=== PATIENT | male | born 1950 | race Caucasian/White ===

== ENCOUNTER 2017-05-01 10:06 | Emergency (ER) | payer MEDICARE, MEDICAID ==
[~2017-05-01] VITALS: Ht 172.7 cm; Wt 72.9 kg
[~2017-05-01 10:06] MED LIST: ALBU18HF2 INH; ASPI81TA61 PO; CARV-50 PO; ESOM40CA PO; FLUT1DIS4 INH; FURO-150 PO; GLIP5TAB26 PO; GLUC-133 PO; GUAI600T45 PO; ISOS10TA8 PO; RIVA10TA PO; ROSU40TA PO; SODI325T PO; SODI650T29 PO; VITA1TAB20 PO; VITA80008 PO
[2017-05-01 10:32] LABS: COLOR,URINE Yellow (Yellow); GLUCOSE, URINE Negative (Neg); KETONES,URINE Trace mg/dl (Neg); LEUKOCYTE ESTERASE ,URINE Negative (Neg); NITRITES, URINE Negative (Neg); OCCULT BLOOD,URINE Large (Neg); PROTEIN,URINE 30 mg/dl (Neg)
[2017-05-01 10:38] LABS: UA COLLECTION TYPE CLN CATCH MIDSTREAM
[2017-05-01 10:58] LABS: RBC,URINE TNTC /HPF (0-2); WBC,URINE 0-4 /HPF (0-4)
[2017-05-01 10:59] LABS: BACTERIA,URINE NONE SEEN /HPF (Neg); SQUAMOUS EPITHELIAL CELL,UR FEW /LPF (FEW)
[2017-05-01 11:00] LABS: COARSE GRANULAR CAST 0-3 /LPF (NEGATIVE); HYALINE CASTS 0-3 /LPF (NEGATIVE); MUCUS STRANDS FEW /LPF (Neg)
[2017-05-01 11:01] LABS: AMORPHOUS URATES 1+
[2017-05-01 11:04] LABS: BASOPHILS % (AUTO) 0.3 % (0-1); EOSINOPHILS # (AUTO) 0.1 X10'3 (0-0.9); EOSINOPHILS % (AUTO) 1.6 % (0-6); HEMATOCRIT 28.1 % (42.0-52.0); HEMOGLOBIN 9.2 g/dl (14.0-17.9); LYMPHOCYTES # (AUTO) 0.5 X10'3 (1.1-4.8); LYMPHOCYTES % (AUTO) 5.9 % (21-51); MEAN CORPUSCULAR HEMOGLOBIN 27.2 PG (27.0-31.0); MEAN CORPUSCULAR HGB CONC 32.9 % (33.0-36.5); MEAN CORPUSCULAR VOLUME 82.6 FL (78-98); MEAN PLATELET VOLUME 9.5 FL (7.4-10.4); MONOCYTES # (AUTO) 0.4 X10'3 (0-0.9); MONOCYTES % (AUTO) 4.8 % (2-12); NEUTROPHILS # (AUTO) 7.8 X10'3 (1.8-7.7); NEUTROPHILS % (AUTO) 87.4 % (42-75); PLATELET COUNT 124 X10'3 (140-440); RED CELL DISTRIBUTION WIDTH 16.9 % (11.5-14.5); WHITE BLOOD COUNT 8.9 X10'3 (4.5-11.0)
[2017-05-01] MEDS ORDERED: normal saline 1000ML IV soln IVB ONE (11:05)
[2017-05-01] MEDS ORDERED: ondansetron/PF 4mg/2ml inj IV ONE (11:05)
[2017-05-01] MEDS ORDERED: morphine 5 MG/ML injection IM ONE (11:05)
[2017-05-01 11:09] LABS: CLARITY,URINE Cloudy (Clear)
[2017-05-01 11:13] LABS: INR 1.3 INR; PROTHROMBIN TIME 13.6 SECONDS (9.0-12.0)
[2017-05-01] MEDS ORDERED: morphine sulfate 8 MG/ML SYRINGE IM ONE (11:15)
[2017-05-01 11:20] LABS: ALANINE AMINOTRANSFERASE 29 U/L (12-78); ALBUMIN 2.7 G/DL (3.4-5.0); ALBUMIN/GLOBULIN RATIO 0.9 (1.1-1.5); ALKALINE PHOSPHATASE 88 IU/L (46-116); AMYLASE 42 U/L (25-115); ANION GAP 12 (8-16); ASPARTATE AMINO TRANSFERASE 14 U/L (10-37); BILIRUBIN,TOTAL 0.5 MG/DL (0.1-1.0); BLOOD UREA NITROGEN 37 MG/DL (7-18); BUN/CREATININE RATIO 14.7 (5.4-32.0); CALCIUM 8.5 MG/DL (8.5-10.1); CHLORIDE 109 MMOL/L (99-107); CREATININE 2.51 MG/DL (0.60-1.10); GLUCOSE 134 MG/DL (70-104); LIPASE 155 U/L (73-393); POTASSIUM 4.7 MMOL/L (3.5-5.1); SODIUM 139 MMOL/L (135-145); TOTAL CARBON DIOXIDE 18.5 MMOL/L (24-32); TOTAL PROTEIN 5.8 G/DL (6.4-8.2); eGFR 26 ML/MIN
[2017-05-01] MEDS ORDERED: ketorolac trometh. 30mg/ml inj. IV ONE (12:05)
[2017-05-01] MEDS ORDERED: tamsulosin 0.4mg capsule PO ONE (12:15)
[2017-05-01] MEDS ORDERED: FLO0.4C PO (12:16)
[2017-05-01] MEDS ORDERED: ONDA8TAB9 PO (12:16)
[2017-05-01] MEDS ORDERED: NAPR-56 PO (12:16)
[2017-05-01] MEDS ORDERED: HYDR-569 PO (12:16)
[2017-05-01 12:38] VITALS: BP 163/71
== END 2017-05-01 13:41 | disposition home or self-care (01) ==
LOC: ER 10:07
DX: N13.2 Hydronephrosis with renal and ureteral calculous obstruction (principal); I25.10 Atherosclerotic heart disease of native coronary artery without angina pectoris; I11.0 Hypertensive heart disease with heart failure; I50.9 Heart failure, unspecified; E78.00 Pure hypercholesterolemia, unspecified; I25.2 Old myocardial infarction; J45.909 Unspecified asthma, uncomplicated; K21.9 Gastro-esophageal reflux disease without esophagitis; E11.9 Type 2 diabetes mellitus without complications; Z88.0 Allergy status to penicillin; Z88.2 Allergy status to sulfonamides; Z88.5 Allergy status to narcotic agent; Z88.8 Allergy status to other drugs, medicaments and biological substances; Z79.82 Long term (current) use of aspirin
CPT/HCPCS: 36415; 74176; 80053; 81001; 82150; 83690; 85025; 85610; 96361; 96372; 96374; 96375; 99285; J1885; J2270; J2405; J7030

== ENCOUNTER 2019-01-07 11:12 | Emergency (ER) | payer MEDICARE, MEDICAID ==
[~2019-01-07] VITALS: Ht 172.7 cm; Wt 85.5 kg
[~2019-01-07 11:12] MED LIST changes: +HYDR-4383 PO; +ONDA8TAB9 PO
[2019-01-07 11:32] VITALS: BP 158/100
== END 2019-01-07 14:05 | disposition home or self-care (01) ==
LOC: ER 11:12
DX: S40.012A Contusion of left shoulder, initial encounter (principal); I25.10 Atherosclerotic heart disease of native coronary artery without angina pectoris; I11.0 Hypertensive heart disease with heart failure; I50.9 Heart failure, unspecified; E78.00 Pure hypercholesterolemia, unspecified; I25.2 Old myocardial infarction; J45.909 Unspecified asthma, uncomplicated; K21.9 Gastro-esophageal reflux disease without esophagitis; M19.90 Unspecified osteoarthritis, unspecified site; M10.9 Gout, unspecified; E11.9 Type 2 diabetes mellitus without complications; Z88.0 Allergy status to penicillin; Z87.11 Personal history of peptic ulcer disease; Z88.2 Allergy status to sulfonamides; Z88.6 Allergy status to analgesic agent; Z79.82 Long term (current) use of aspirin; Z79.899 Other long term (current) drug therapy; Z98.61 Coronary angioplasty status; Z95.4 Presence of other heart-valve replacement; W01.0XXA Fall on same level from slipping, tripping and stumbling without subsequent striking against object, initial encounter; Y93.89 Activity, other specified; Y92.89 Other specified places as the place of occurrence of the external cause; Y99.8 Other external cause status
CPT/HCPCS: 73030; 99283

== ENCOUNTER 2019-08-31 09:45 | Emergency (ER) | payer MEDICARE, MEDICAID ==
[~2019-08-31] VITALS: Ht 172.7 cm; Wt 100.0 kg
[2019-08-31 10:36] LABS: BASOPHILS % (AUTO) 0.6 % (0-1); EOSINOPHILS # (AUTO) 0.2 X10'3 (0-0.9); EOSINOPHILS % (AUTO) 2.3 % (0-6); HEMOGLOBIN 15.5 g/dl (14.0-17.9); LYMPHOCYTES # (AUTO) 1.3 X10'3 (1.1-4.8); LYMPHOCYTES % (AUTO) 17.7 % (21-51); MEAN CORPUSCULAR HEMOGLOBIN 30.7 PG (27.0-31.0); MEAN PLATELET VOLUME 8.2 FL (7.4-10.4); MONOCYTES # (AUTO) 0.7 X10'3 (0-0.9); NEUTROPHILS # (AUTO) 5.3 X10'3 (1.8-7.7); NEUTROPHILS % (AUTO) 70.4 % (42-75); PLATELET COUNT 146 X10'3 (140-440); RED BLOOD COUNT 5.06 X10'6 (4.70-6.10); WHITE BLOOD COUNT 7.5 X10'3 (4.5-11.0)
[2019-08-31] MEDS ORDERED: oxymetazoline 15 ML nasal spray NS ONE (10:40)
[2019-08-31] MEDS ORDERED: LIDOcaine Viscous 15ml cup TP ONE (10:40)
[2019-08-31 10:48] LABS: PARTIAL THROMBOPLASTIN TIME 33 SECONDS (22-32)
[2019-08-31 10:49] LABS: ALANINE AMINOTRANSFERASE 20 U/L (12-78); ALBUMIN/GLOBULIN RATIO 1.1 (1.1-1.5); ALKALINE PHOSPHATASE 86 IU/L (46-116); ANION GAP 8 (8-16); ASPARTATE AMINO TRANSFERASE 18 U/L (10-37); BILIRUBIN,TOTAL 0.4 MG/DL (0.1-1.0); BLOOD UREA NITROGEN 26 MG/DL (7-18); BUN/CREATININE RATIO 8.8 (5.4-32.0); CALCIUM 9.3 MG/DL (8.5-10.1); CHLORIDE 106 MMOL/L (99-107); CREATININE 2.96 MG/DL (0.60-1.10); GLUCOSE 119 MG/DL (70-104); POTASSIUM 4.8 MMOL/L (3.5-5.1); SODIUM 140 MMOL/L (135-145); TOTAL CARBON DIOXIDE 25.6 MMOL/L (24-32); TOTAL PROTEIN 7.5 G/DL (6.4-8.2); eGFR 21 ML/MIN
[2019-08-31] MEDS ORDERED: silver nitrate applicator stick TP ONE (11:45)
[2019-08-31 13:19] VITALS: BP 147/96
== END 2019-08-31 13:23 | disposition home or self-care (01) ==
LOC: ER 09:45
DX: R04.0 Epistaxis (principal); I25.10 Atherosclerotic heart disease of native coronary artery without angina pectoris; I50.9 Heart failure, unspecified; E78.00 Pure hypercholesterolemia, unspecified; I11.0 Hypertensive heart disease with heart failure; I25.2 Old myocardial infarction; J45.909 Unspecified asthma, uncomplicated; K21.9 Gastro-esophageal reflux disease without esophagitis; E11.9 Type 2 diabetes mellitus without complications; M19.90 Unspecified osteoarthritis, unspecified site; Z98.61 Coronary angioplasty status; Z86.69 Personal history of other diseases of the nervous system and sense organs; Z60.2 Problems related to living alone; Z98.890 Other specified postprocedural states; Z88.0 Allergy status to penicillin; Z88.5 Allergy status to narcotic agent; Z88.2 Allergy status to sulfonamides; Z79.82 Long term (current) use of aspirin; Z79.899 Other long term (current) drug therapy
CPT/HCPCS: 30905; 36415; 80053; 85025; 85610; 85730; 99284

== ENCOUNTER 2019-09-02 12:19 | Emergency (ER) | payer MEDICARE, MEDICAID ==
[~2019-09-02] VITALS: Ht 172.7 cm; Wt 85.6 kg
[2019-09-02 12:23] VITALS: BP 143/91
--- NOTE | 2019-09-02 13:35 | NUR ---
pt is 69 yo male came to ER to have rhino rocket from left nare removed, was placed 2 days ago, pt said there is no more bleeding, "just serous liquid", has been off blood thinners for 2 days, going to forensics team director after dc'd from ER to see when he should start taking blood thinners again, pt is resting quietly on chair, waiting to see provider
--- NOTE | 2019-09-02 14:00 | NUR ---
packing removed, no bleeding
== END 2019-09-02 14:14 | disposition home or self-care (01) ==
LOC: ER 12:19
DX: Z48.00 Encounter for change or removal of nonsurgical wound dressing (principal); I25.10 Atherosclerotic heart disease of native coronary artery without angina pectoris; I50.9 Heart failure, unspecified; E78.00 Pure hypercholesterolemia, unspecified; I11.0 Hypertensive heart disease with heart failure; I25.2 Old myocardial infarction; J45.909 Unspecified asthma, uncomplicated; K21.9 Gastro-esophageal reflux disease without esophagitis; E11.9 Type 2 diabetes mellitus without complications; M19.90 Unspecified osteoarthritis, unspecified site; Z86.69 Personal history of other diseases of the nervous system and sense organs; Z87.891 Personal history of nicotine dependence; Z98.61 Coronary angioplasty status; Z98.890 Other specified postprocedural states; Z60.2 Problems related to living alone; Z88.0 Allergy status to penicillin; Z88.2 Allergy status to sulfonamides; Z88.5 Allergy status to narcotic agent; Z88.8 Allergy status to other drugs, medicaments and biological substances; Z79.82 Long term (current) use of aspirin; Z79.899 Other long term (current) drug therapy
CPT/HCPCS: 99281

== ENCOUNTER 2019-11-06 10:38 | Observation (INO) | payer MEDICARE, MEDICAID ==
[~2019-11-06] VITALS: Ht 172.7 cm; Wt 90.9 kg
[2019-11-06] MEDS ORDERED: normal saline 1000ml 1,000 ML IV ONE (11:12)
[2019-11-06 11:43] LABS: BASOPHILS # (AUTO) 0.1 X10'3 (0-0.2); BASOPHILS % (AUTO) 1.1 % (0-1); EOSINOPHILS # (AUTO) 0.2 X10'3 (0-0.9); EOSINOPHILS % (AUTO) 2.3 % (0-6); HEMATOCRIT 49.9 % (42.0-52.0); HEMOGLOBIN 16.2 g/dl (14.0-17.9); LYMPHOCYTES # (AUTO) 1.4 X10'3 (1.1-4.8); MEAN CORPUSCULAR HEMOGLOBIN 30.2 PG (27.0-31.0); MEAN CORPUSCULAR HGB CONC 32.4 g/dL (33.0-36.5); MEAN CORPUSCULAR VOLUME 93.1 FL (78-98); MEAN PLATELET VOLUME 8.3 FL (7.4-10.4); MONOCYTES # (AUTO) 0.6 X10'3 (0-0.9); MONOCYTES % (AUTO) 7.2 % (2-12); NEUTROPHILS # (AUTO) 5.9 X10'3 (1.8-7.7); NEUTROPHILS % (AUTO) 72.4 % (42-75); PLATELET COUNT 182 X10'3 (140-440); RED BLOOD COUNT 5.36 X10'6 (4.70-6.10); RED CELL DISTRIBUTION WIDTH 15.3 % (11.5-14.5); WHITE BLOOD COUNT 8.1 X10'3 (4.5-11.0)
[2019-11-06 11:56] LABS: PARTIAL THROMBOPLASTIN TIME 38 SECONDS (22-32)
[2019-11-06 11:58] LABS: ALANINE AMINOTRANSFERASE 26 U/L (12-78); ALBUMIN 4.2 G/DL (3.4-5.0); ALBUMIN/GLOBULIN RATIO 1.1 (1.1-1.5); ALKALINE PHOSPHATASE 80 IU/L (46-116); ANION GAP 9 (8-16); ASPARTATE AMINO TRANSFERASE 19 U/L (10-37); BILIRUBIN,TOTAL 0.3 MG/DL (0.1-1.0); BLOOD UREA NITROGEN 22 MG/DL (7-18); BUN/CREATININE RATIO 7.6 (5.4-32.0); CALCIUM 9.5 MG/DL (8.5-10.1); CHLORIDE 105 MMOL/L (99-107); GLUCOSE 119 MG/DL (70-104); POTASSIUM 5.3 MMOL/L (3.5-5.1); SODIUM 140 MMOL/L (135-145); TOTAL CARBON DIOXIDE 25.9 MMOL/L (24-32); eGFR 22 ML/MIN
[2019-11-06] MEDS ORDERED: magnesium 4gm in 100ml NS 100 ML IV PRN (14:00)
[2019-11-06] MEDS ORDERED: ondansetron/PF 4mg/2ml inj IV PRN (14:00)
[2019-11-06] MEDS ORDERED: potassium CL 10mEq/100ml bag 100 ML IV PRN ×2 (14:00)
[2019-11-06] MEDS ORDERED: magnesium 2GM in 50ml NS 50 ML IV PRN (14:00)
[2019-11-06] MEDS ORDERED: potassium Cl 20 mEq SR tablet PO PRN ×2 (14:00)
[2019-11-06] MEDS ORDERED: magnesium Cl slow-release 64mg tablet PO PRN (14:00)
[2019-11-06] MEDS ORDERED: acetaminophen 325mg tablet PO PRN ×2 (14:00)
[2019-11-06] MEDS ORDERED: morphine 2 MG/ML inj. syringe IV PRN (14:00)
[2019-11-06] MEDS ORDERED: HYDROcodone/acetaminophen 5mg/325mg tablet PO PRN (14:00)
[2019-11-06] MEDS: normal saline 1000ml 1,000 ML IV SCH ×2 (14:16→22:43)
--- NOTE | 2019-11-06 15:12 | NUR ---
PT STATES, PAIN IN LOWER ABD 2/10
--- NOTE | 2019-11-06 16:22 | NUR ---
lab called with critical value hgb 18.3
--- NOTE | 2019-11-06 17:20 | NUR ---
received report from ER
[2019-11-06 17:33] VITALS: BP 181/94
[2019-11-06 18:00] VITALS: BP 164/93
--- NOTE | 2019-11-06 18:24 | NUR ---
Patient in room PCU 3015. I have received report from Alee GUALLPA and had the opportunity to ask questions and assume patient care.
[2019-11-06] MEDS: K and/or MAG REPLACEMENT MC SCH (19:39)
[2019-11-06] MEDS: pantoprazole 40 MG vial IV SCH (20:01)
[2019-11-06 22:00] VITALS: BP 152/79
[2019-11-07] VITALS (7 sets, daily range): BP systolic 108–176; BP diastolic 73–91
[2019-11-07] MEDS ORDERED: dextrose 50%-water 50ml dispensing syringe IV PRN ×2 (05:50)
[2019-11-07] MEDS ORDERED: insulin Lispro (HumaLOG) vial - multi-dose SQ SCH (05:50)
[2019-11-07] MEDS ORDERED: glucagon, human recombinant 1mg kit SUBCUT PRN (05:50)
[2019-11-07] MEDS ORDERED: MESSAGE TO PHARMACY PO ONE (05:50)
[2019-11-07] MEDS ORDERED: dextrose ORAL solution 15 GM/59 ML bottle PO PRN ×2 (05:50)
--- NOTE | 2019-11-07 06:18 | NUR ---
Problems reprioritized. Patient report given, questions answered & plan of care reviewed with Heron GUALLPA.
--- NOTE | 2019-11-07 06:20 | NUR ---
Patient in room PCU 3015. I have received report from Julián GUALLPA and had the opportunity to ask questions and assume patient care.
[2019-11-07 06:23] LABS: BASOPHILS % (AUTO) 0.8 % (0-1); EOSINOPHILS # (AUTO) 0.2 X10'3 (0-0.9); EOSINOPHILS % (AUTO) 3.2 % (0-6); HEMATOCRIT 45.4 % (42.0-52.0); LYMPHOCYTES # (AUTO) 1.4 X10'3 (1.1-4.8); LYMPHOCYTES % (AUTO) 22.7 % (21-51); MEAN CORPUSCULAR HEMOGLOBIN 30.7 PG (27.0-31.0); MEAN CORPUSCULAR HGB CONC 32.9 g/dL (33.0-36.5); MEAN CORPUSCULAR VOLUME 93.3 FL (78-98); MEAN PLATELET VOLUME 8.7 FL (7.4-10.4); MONOCYTES # (AUTO) 0.5 X10'3 (0-0.9); NEUTROPHILS % (AUTO) 65.3 % (42-75); PLATELET COUNT 140 X10'3 (140-440); RED BLOOD COUNT 4.87 X10'6 (4.70-6.10); WHITE BLOOD COUNT 6.1 X10'3 (4.5-11.0)
[2019-11-07 06:44] LABS: ALANINE AMINOTRANSFERASE 22 U/L (12-78); ALBUMIN 3.3 G/DL (3.4-5.0); ALKALINE PHOSPHATASE 57 IU/L (46-116); ANION GAP 9 (8-16); ASPARTATE AMINO TRANSFERASE 15 U/L (10-37); BILIRUBIN,TOTAL 0.4 MG/DL (0.1-1.0); CALCIUM 8.9 MG/DL (8.5-10.1); CHLORIDE 109 MMOL/L (99-107); GLUCOSE 106 MG/DL (70-104); MAGNESIUM 1.9 MG/DL (1.5-2.4); POTASSIUM 5.2 MMOL/L (3.5-5.1); SODIUM 142 MMOL/L (135-145); TOTAL CARBON DIOXIDE 23.8 MMOL/L (24-32); TOTAL PROTEIN 6.5 G/DL (6.4-8.2); eGFR 25 ML/MIN
[2019-11-07 07:02] LABS: BLOOD UREA NITROGEN 20 MG/DL (7-18); BUN/CREATININE RATIO 7.7 (5.4-32.0)
[2019-11-07] MEDS: K and/or MAG REPLACEMENT MC SCH (08:00)
[2019-11-07] MEDS: pantoprazole 40 MG vial IV SCH (08:23)
[2019-11-07] MEDS: normal saline 1000ml 1,000 ML IV SCH ×2 (08:24→10:21)
[2019-11-07] MEDS ORDERED: albuterol 2.5 MG/3 ML nebule NEB PRN (09:55)
[2019-11-07] MEDS ORDERED: carVEDilol 12.5mg tablet PO ONE (10:00)
[2019-11-07] MEDS ORDERED: furosemide 20MG tablet PO ONE (10:25)
--- NOTE | 2019-11-07 11:00 | NUR ---
Pt taken down to GI lab
[2019-11-07] MEDS ORDERED: MIDAZolam 1mg/ml 10ml vial ONE (11:46)
[2019-11-07] MEDS ORDERED: LIDOcaine Viscous 15ml cup ONE (11:47)
[2019-11-07] MEDS ORDERED: fentaNYL/PF 50MCG/1 ML 2ML syringe ONE (11:47)
--- NOTE | 2019-11-07 14:07 | NUR ---
PAGER ID: [phone] MESSAGE: Re: Willem Quinteros, Room: [facility]. Pt has returned from EGD. -[facility] #[id number] Dr. Ozuna paged concerning Pt returning from EGD
--- NOTE | 2019-11-07 15:00 | NUR ---
Pt DC'd home with family. IV removed, canula intact. Tele-box removed and returned to tele-tech. Pt alert and oriented and vitals WNL upon DC. Pt stable per MD. DC paper work gone over with Pt. Allowed Pt to ask questions concerning DC and then answered them. No new prescriptions for Pt. Pt already has appt with PCP on 11/10/19, where he will get CBC drawn to check H and H. Pt states that he yolanda also get in contact with his GI doctro, Dr. Mota and have a follow up appt for colonoscopy. Pt's belongings gathered and sent with Pt. Pt wheeled down to lobby with four wheel-walker. Pt left with son in private vehicle for home.
[2019-11-07] MEDS ORDERED: budesonide 0.5mg/2ml UD nebule IH SCH (20:00)
[2019-11-07] MEDS ORDERED: pantoprazole 40mg Tablet.DR PO SCH (20:00)
[2019-11-07] MEDS ORDERED: carVEDilol 12.5mg tablet PO SCH (20:00)
[2019-11-07] MEDS ORDERED: insulin glargine (Lantus) pen - multi-dose SQ SCH (21:00)
[2019-11-08] MEDS ORDERED: atorvastatin 20mg tablet PO SCH (08:00)
[2019-11-08] MEDS ORDERED: furosemide 20MG tablet PO SCH (08:00)
--- NOTE | 2019-11-12 16:10 | NUR ---
Case management DC follow up: LM/VM re post DC follow up, questions, concerns
== END 2019-11-07 15:15 | disposition home or self-care (01) ==
LOC: ER 10:38 → ED HOLD 13:59 → UNDOADMOB 14:06 → ED HOLD 14:06 → PCU 3S 17:25
PROVIDERS: ADMIT Internal Medicine; ATTEND Internal Medicine
DX: K92.1 Melena (principal); R19.7 Diarrhea, unspecified; K22.8 Other specified diseases of esophagus; K31.89 Other diseases of stomach and duodenum; I48.91 Unspecified atrial fibrillation; I13.0 Hypertensive heart and chronic kidney disease with heart failure and stage 1 through stage 4 chronic kidney disease, or unspecified chronic kidney disease; E11.22 Type 2 diabetes mellitus with diabetic chronic kidney disease; N18.3 Chronic kidney disease, stage 3 (moderate); I50.9 Heart failure, unspecified; I25.10 Atherosclerotic heart disease of native coronary artery without angina pectoris; E78.00 Pure hypercholesterolemia, unspecified; I25.2 Old myocardial infarction; J45.909 Unspecified asthma, uncomplicated; M10.9 Gout, unspecified; M19.90 Unspecified osteoarthritis, unspecified site; E03.9 Hypothyroidism, unspecified; K22.70 Barrett's esophagus without dysplasia; Z87.11 Personal history of peptic ulcer disease; Z95.5 Presence of coronary angioplasty implant and graft; Z79.01 Long term (current) use of anticoagulants; R55 Syncope and collapse; T50.905A Adverse effect of unspecified drugs, medicaments and biological substances, initial encounter; Z79.82 Long term (current) use of aspirin; Z79.899 Other long term (current) drug therapy; Z88.0 Allergy status to penicillin; Z88.2 Allergy status to sulfonamides; Z88.4 Allergy status to anesthetic agent; Z91.013 Allergy to seafood; X58.XXXA Exposure to other specified factors, initial encounter; Y93.89 Activity, other specified; Y92.89 Other specified places as the place of occurrence of the external cause
CPT/HCPCS: 36415; 43239; 71045; 80053; 82948; 83036; 83735; 85025; 85610; 85730; 86885; 86900; 86901; 93005; 96361; 96374; 96376; 97161; 97530; 99285; C9113; G0378; J2250; J3010; J7030; J7040; 88305; 88342; 99152; A4620; J1815